=== PATIENT | female | born 1975 | race Caucasian/White ===

== ENCOUNTER → 2024-02-11 14:12 | Outpatient (REF) | payer OTHER, SELFPAY | LOC: WDC 14:12 | PROVIDERS: ATTENDING PHYSICIAN Obstetrics & Gynecology; FAMILY PHYSICIAN Internal Medicine | DX: Z12.31 Encounter for screening mammogram for malignant neoplasm of breast (principal) | CPT/HCPCS: 77063; 77067 ==

== ENCOUNTER → 2024-04-17 09:58 | Outpatient (REF) | payer OTHER, SELFPAY | LOC: RAD 09:58 | PROVIDERS: ATTENDING PHYSICIAN Podiatrist; FAMILY PHYSICIAN Internal Medicine | DX: M84.376A Stress fracture, unspecified foot, initial encounter for fracture (principal) | CPT/HCPCS: 73630 ==

== ENCOUNTER → 2024-05-04 09:22 | Outpatient (REF) | payer OTHER, SELFPAY | LOC: PAVMRI 09:22 | PROVIDERS: ATTENDING PHYSICIAN Physician Assistant Medical; FAMILY PHYSICIAN Internal Medicine; REFERRING PHYSICIAN Podiatrist | DX: M79.671 Pain in right foot (principal) | CPT/HCPCS: 73718 ==

== ENCOUNTER → 2025-02-11 17:24 | Outpatient (REF) | payer BC, SELFPAY | LOC: WDC 17:24 | PROVIDERS: ATTENDING PHYSICIAN Obstetrics & Gynecology; FAMILY PHYSICIAN Internal Medicine | DX: Z12.31 Encounter for screening mammogram for malignant neoplasm of breast (principal) | CPT/HCPCS: 77063; 77067 ==

== ENCOUNTER → 2025-10-06 10:32 | Outpatient (REF) | payer OTHER, SELFPAY | LOC: OHS 10:32 | PROVIDERS: ATTENDING PHYSICIAN Nurse Practitioner Family | DX: Z23 Encounter for immunization (principal) | CPT/HCPCS: 36415; 86480; 86735; 86762; 86765; 86787 ==